=== PATIENT | male | born 1975 | race Caucasian/White ===

== ENCOUNTER 2022-11-12 05:10 | Day surgery (SDC) | payer BC, OTHER ==
[2022-11-07 15:58] VITALS: BMI 24.2
[2022-11-12 09:23] VITALS: TEMP 97.8
[2022-11-12 10:16] VITALS: RESP 18
[2022-11-12 10:36] VITALS: BP 112/77; PULSE 69
== END 2022-11-12 10:40 | disposition home or self-care (01) ==
LOC: JASU-ENDO 05:10
PROVIDERS: ATTEND Internal Medicine Gastroenterology
PROC: 0DBM8ZX Excision of Descending Colon, Via Natural or Artificial Opening Endoscopic, Diagnostic (ICD-10-PCS; principal; 2022-11-12 10:00)
DX: Z12.11 Encounter for screening for malignant neoplasm of colon (principal); K63.5 Polyp of colon; K64.8 Other hemorrhoids; K59.89 Other specified functional intestinal disorders; K92.1 Melena
CPT/HCPCS: 88305-TC